=== PATIENT | male | born 1970 | race Caucasian/White ===

== ENCOUNTER 2018-03-27 16:55 | Emergency (ER) | payer MEDICAID ==
[2018-03-27 17:01] VITALS: BP 141/88
--- NOTE | 2018-03-27 17:04 | EDPHY ---
H & P Stated Complaint: cough, hoarse voice, sob, L gum swelling --x 2 weeks Time Seen by Provider: 03/27/18 17:03 - Medical/Surgical History Hx Asthma: Yes Hx Chronic Respiratory Disease: No Hx Diabetes: No Hx Cardiac Disease: No Hx Renal Disease: No Hx Cirrhosis: No Hx Alcoholism: No Hx HIV/AIDS: No Hx Splenectomy or Spleen Trauma: No Other PMH: childhood asthma - Social History Smoking Status: Current every day smoker Constitutional: Initial Vital Signs Temperature (C) 36.7 C 03/27/18 16:58 Heart Rate 88 03/27/18 16:58 Respiratory Rate 18 03/27/18 16:58 Blood Pressure 141/88 H 03/27/18 16:58 O2 Sat (%) 98 03/27/18 16:58 O2 Delivery Mode Room Air Allergies/Adverse Reactions: No Known Allergies Allergy (Unverified 03/27/18 16:57) Home Medications: Medication Instructions Recorded Albuterol [Proventil Inhaler] 1 - 2 puffs IH Q4 #1 mdi 03/27/18 Azithromycin [Zithromax] 250 mg PO DAILY #6 tab 03/27/18 HYDROcodone/HOMATROPINE HYCODA 1 tsp PO Q4-6PRN PRN #120 ml 03/27/18 [Hycodan Syrup (RX)] predniSONE 40 mg PO DAILY #10 tab 03/27/18 Medical Decision Making - Diagnostics Imaging Results: Imaging Impressions Chest X-Ray 03/27/18 17:09 Impression: No evidence of acute cardiopulmonary abnormality. ED Course/Re-evaluation: CHIEF COMPLAINT: Shortness of breath, cough, gum swelling HISTORY OF PRESENT ILLNESS: The patient is a 47 y/o male complaining of shortness of breath, cough, and gum swelling for the past month. He used his inhaler without relief of his symptoms. Denies taking pain medication for his symptoms. Denies chest pain, abdominal pain, urinary or bowel complaints, paresthesias or numbness. REVIEW OF SYSTEMS: A 10 point review of systems was performed and is negative with the exception of the elements mentioned in the history of present illness. PHYSICAL EXAM: HR, BP, O2 Sat, RR. Temp noted General Appearance: Alert, well hydrated, appropriate, and non-toxic appearing. Head: Atraumatic without scalp tenderness or obvious injury Eyes: Pupils equal, round, reactive to light and accommodation, EOMI, no trauma , no injection. Ears: Clear bilaterally, no perforation, normal landmarks Nose: Atraumatic, no rhinorrhea, clear. Throat: Left lower gum erythema and swelling. No lesions, normal tonsils, mucus membranes moist. Neck: Supple, nontender, no lymphadenopathy. Respiratory: Coarse rhonchi throughout all lung gastelum, decreased breath sounds throughout, increased expiratory wheezing. No retractions, no distress, and no accessory muscle use. Cardiovascular: Regular rate and rhythm, no murmurs, rubs, or gallops. Bilateral carotid, radial, dorsalis pedis, and posterior tibial pulses intact. Good capillary refill all extremities. Gastrointestinal: Abdomen is soft, nontender, non-distended, no masses, no rebound, no guarding, no peritoneal signs. Musculoskeletal: Normal active ROM of all extremities, atraumatic. Neurological: Alert, appropriate, and interactive. The patient has normal DTRs and non-focal cranial nerves, motor, sensory, and cerebellar exam. Skin: No rashes, good turgor, no nodules on palpation. Past medical history: Childhood asthma Past surgical history: Denies Family history: Denies Social history: Friend at bedside, lives in [place], employed DIAGNOSTICS/PROCEDURES/CRITICAL CARE TIME: Chest x-ray: Bronchitis DIFFERENTIAL DIAGNOSIS: The differential diagnosis for the patient's shortness of breath and hypoxemia included but was not limited to pneumonia, myocardial infarction, acute mountain sickness, high altitude pulmonary edema, congestive heart failure, and pulmonary embolus. MEDICAL DECISION MAKING: The patient is a 47 y/o male presenting with shortness of breath, cough, and gum swelling for the past month. On exam he has coarse rhonchi throughout all lung gastelum, decreased breath sounds throughout, and increased expiratory wheezing. He also has left lower gum erythema and swelling. Chest x-ray ordered ; laboratory studies are not indicated at this time. 60 mg PO Prednisone, 500mg PO Zithromax, DuoNeb, 800mg PO Ibuprofen, and 2 tabs PO Percocet administered. 1738: I reviewed patient's chest x-ray which reveals bronchitis. 174: Reassessed patient and discussed imaging findings. I have prescribed him Prednisone, a Proventil inhaler, Vicodin, Zithromax. I have also advised him to buy Mucinex over the counter. Return precautions provided; patient is comfortable with this plan. - Data Points Medications Given: Discontinued Medications Albuterol/Ipratropium (Duoneb) 3 ml IH EDNOW ONE Stop: 03/27/18 17:10 Last Admin: 03/27/18 17:16 Dose: 3 ml Azithromycin (Zithromax) 500 mg PO EDNOW ONE PRN Reason: Protocol Stop: 03/27/18 17:10 Last Admin: 03/27/18 17:18 Dose: 500 mg Ibuprofen (Motrin) 800 mg PO EDNOW ONE Stop: 03/27/18 17:15 Last Admin: 03/27/18 17:18 Dose: 800 mg Oxycodone/Acetaminophen (Percocet 5/325) 2 tab PO EDNOW ONE Stop: 03/27/18 17:14 Last Admin: 03/27/18 17:18 Dose: 2 tab Prednisone (Prednisone) 60 mg PO EDNOW ONE Stop: 03/27/18 17:10 Last Admin: 03/27/18 17:17 Dose: 60 mg Departure - Departure Disposition: Home, Routine, Self-Care Clinical Impression: Acute bronchitis Qualifiers: Bronchitis organism: other organism Qualified Code(s): J20.8 - Acute bronchitis due to other specified organisms Condition: Good Instructions: Acute Bronchitis (ED) Additional Instructions: 1. Take Prednisone as prescribed. 2. Use the Proventil inhaler as prescribed. 3. Take Vicodin as prescribed. 4. Take Zithromax as prescribed. 5. Buy Mucinex of the counter. 6. Follow-up with your primary doctor within 72 hours. 7. Return to the Emergency Department for fever, chest pain, shortness of breath , increasing pain or other worsening of condition. Referrals: [facility],. [Clinic] - As per Instructions Prescriptions: Albuterol [Proventil Inhaler] 1 - 2 puffs IH Q4 #1 mdi Azithromycin [Zithromax] 250 mg PO DAILY #6 tab HYDROcodone/HOMATROPINE HYCODA [Hycodan Syrup (RX)] 1 tsp PO Q4-6PRN PRN #120 ml PRN Reason: Cough, Moderate predniSONE 40 mg PO DAILY #10 tab Report Scribed for: Braeden Rivera Report Scribed by: Rabia Martinez Date of Report: 03/27/18 Time of Report: 17:06
[2018-03-27] MEDS ORDERED: predniSONE 20 MG TAB PO ONE (17:09)
[2018-03-27] MEDS ORDERED: AZITHROMYCIN 250 MG TAB PO ONE (17:09)
[2018-03-27] MEDS ORDERED: IPRATROPIUM/ALBUTEROL 3 ML DEYVIAL IH ONE (17:09)
[2018-03-27] MEDS ORDERED: OXYCODONE/APAP 5/325 TAB PO ONE (17:13)
[2018-03-27] MEDS ORDERED: IBUPROFEN 800 MG TAB PO ONE ×2 (17:14→17:15)
[2018-03-27] MEDS ORDERED: HYDROCOD/APAP 5/325 PREPACK#6 BTL TAKEHOME ONE ×2 (20:33→20:34)
== END 2018-03-27 17:52 | disposition home or self-care (01) ==
DX: J20.9 Acute bronchitis, unspecified (principal); J45.909 Unspecified asthma, uncomplicated; F17.200 Nicotine dependence, unspecified, uncomplicated
CPT/HCPCS: J7512

== ENCOUNTER 2018-11-11 16:42 | Emergency (ER) | payer MEDICAID ==
[2018-11-11 16:56] VITALS: BP 121/85
[2018-11-11] MEDS ORDERED: methylPREDNISolone SOD SUCC 125 MG/2 ML VIAL IM ONE (17:00)
[2018-11-11] MEDS ORDERED: IPRATROPIUM/ALBUTEROL 3 ML DEYVIAL IH ONE (17:00)
--- NOTE | 2018-11-11 17:00 | EDPHY ---
H & P Stated Complaint: General malaise Time Seen by Provider: 11/11/18 16:56 HPI/ROS: HPI: This is a 48-year-old male who presents with Chief Complaint: Cough, fatigue Location: Chest Quality: Cough and wheezing Duration: Several weeks Signs and Symptoms: no shortness of breath at rest, + shortness of breath on exertion, + cough, no chest pain, no palpitations, no lower extremity edema, + wheezing, no orthopnea, no paroxysmal nocturnal dyspnea, no fever, no injury/ trauma, no hemoptysis, no carpal pedal spasms Timing: Acute, worsening Severity: Moderate Context: Patient has a history of childhood asthma, almost out of his ProAir rescue inhaler, presents with several week history cough that is worse at night that is nonproductive in nature, fatigue, low-grade fevers, shortness of breath on exertion and wheezing. Patient reports over the last 2 nights his symptoms have been worse. Patient does smoke cigarettes daily. Patient does not have a primary care provider in the area. He denies any chest pain, lower extremity edema, calf pain. Patient received influenza vaccine this year. Modifying Factors: Albuterol inhaler Comment: ROS: A comprehensive 10 system review of systems is otherwise negative aside from elements mentioned in the history of present illness. MEDICAL/SURGICAL/SOCIAL HISTORY: Medical history: Asthma, obstructive sleep apnea. Surgical history: Tonsillectomy and adenoidectomy Social history: Smoker. Employed. Moved to the area from [place] approximately 2 months ago. CONSTITUTIONAL: Nontoxic-appearing middle-aged white male, awake and alert, no obvious distress HEENT: Atraumatic and normocephalic, PERRL, EOMI. Nares patent; no rhinorrhea; no nasal mucosal edema. Tympanic membranes clear. Oropharynx clear, no tonsils , no exudate and moist pink mucosa. Airway patent. No lymphadenopathy. No meningismus. Cardiovascular: Normal S1/S2, regular rate, regular rhythm, without murmur rub or gallop. PULMONARY/CHEST: Symmetrical and nontender. Expiratory wheezing bilaterally. Average air movement. No accessory muscle usage. ABDOMEN: Soft, nondistended, nontender, no rebound, no guarding, no peritoneal signs, no masses or organomegaly. No CVAT. EXTREMITIES: 2/2 pulses, strength 5/5, no deformities, no clubbing, no cyanosis or edema. NEUROLOGICAL: no focal neuro deficits. GCS 15. SKIN: Warm and dry, no erythema. no rash. Good capillary refill. Source: Patient Exam Limitations: No limitations - Personal History Current Tetanus/Diphtheria Vaccine: Yes - Medical/Surgical History Hx Asthma: Yes Hx Chronic Respiratory Disease: No Hx Diabetes: No Hx Cardiac Disease: No Hx Renal Disease: No Hx Cirrhosis: No Hx Alcoholism: No Hx HIV/AIDS: No Hx Splenectomy or Spleen Trauma: No Other PMH: childhood asthma - Social History Smoking Status: Current every day smoker Constitutional: Initial Vital Signs Temperature (C) 36.9 C 11/11/18 16:54 Heart Rate 93 11/11/18 16:54 Respiratory Rate 18 11/11/18 16:54 Blood Pressure 121/85 H 11/11/18 16:54 O2 Sat (%) 96 11/11/18 16:54 O2 Delivery Mode Room Air Allergies/Adverse Reactions: No Known Allergies Allergy (Unverified 11/11/18 16:55) Home Medications: Medication Instructions Recorded Albuterol [Proventil Inhaler] 1 - 2 puffs IH Q4 #1 mdi 03/27/18 Azithromycin [Zithromax] 250 mg PO DAILY #6 tab 03/27/18 HYDROcodone/APAP 10/325 [[place] 1 - 2 each PO Q4-6PRN PRN #20 tab 03/27/18 10/325] HYDROcodone/HOMATROPINE HYCODA 1 tsp PO Q4-6PRN PRN #120 ml 03/27/18 [Hycodan Syrup (RX)] predniSONE 40 mg PO DAILY #10 tab 03/27/18 Albuterol Sulfate [Proair Hfa] 1 - 2 puffs IH Q4-6PRN PRN #1 11/11/18 hfa.aer.ad Benzonatate [Tessalon Pearles (RX)] 200 mg PO Q6 PRN #12 cap 11/11/18 HYDROcodone/HOMATROPINE HYCODA 1 tsp PO HS PRN #120 ml 11/11/18 [Hycodan Syrup (*)] predniSONE 50 mg PO DAILY 5 Days tablet 11/11/18 Medical Decision Making - Diagnostics Imaging Results: Imaging Impressions Chest X-Ray 11/11/18 17:00 Impression: Mild perihilar bronchitis, without a focal infiltrate. ED Course/Re-evaluation: Vital signs reviewed and stable upon arrival. O2 sats 96% on room air. No hypoxia or respiratory distress. Differential includes upper respiratory infection versus asthma exacerbation Chest x-ray, medications ordered Patient given IM Solu-Medrol 125 mg, DuoNeb, p.o. Zofran, p.o. Percocet 1735: Chest x-ray my read shows no opacity, no effusion, no pneumothorax. + bronchitic changes noted Reassessed patient who has improved aeration and improvement in wheezing. Patient is appropriate to treat outpatient. Patient given refill for ProAir inhaler, prednisone burst, Tessalon Perles This patient was seen under the supervision of my secondary supervising physician. I evaluated care for this patient independently. Discussed this patient with Dr. Dai who did not see the patient. Differential Diagnosis: Shortness of breath including but not limited to pulmonary infectious process, COPD, asthma, pulmonary embolus and congestive heart failure. - Data Points Medications Given: Discontinued Medications Albuterol/Ipratropium (Duoneb) 3 ml IH EDNOW ONE Stop: 11/11/18 17:01 Last Admin: 11/11/18 17:05 Dose: 3 ml Methylprednisolone Sodium Succinate (Solu-Medrol) 125 mg IM EDNOW ONE Stop: 11/11/18 17:01 Last Admin: 11/11/18 17:05 Dose: 125 mg Ondansetron HCl (Zofran Odt) 4 mg PO EDNOW ONE Stop: 11/11/18 17:02 Last Admin: 11/11/18 17:05 Dose: 4 mg Oxycodone/Acetaminophen (Percocet 5/325) 1 tab PO EDNOW ONE Stop: 11/11/18 17:02 Last Admin: 11/11/18 17:05 Dose: 1 tab Departure - Departure Disposition: Home, Routine, Self-Care Clinical Impression: Upper respiratory infection, viral Asthma with acute exacerbation in adult Qualifiers: Asthma severity: moderate Asthma persistence: persistent Qualified Code(s): J45.41 - Moderate persistent asthma with (acute) exacerbation Condition: Good Instructions: COPD (Chronic Obstructive Pulmonary Disease) (ED), Bronchospasm ( ED) Additional Instructions: Please refrain from using tobacco products as this can make your asthma worse. Take steroid burst as directed. Use ProAir inhaler every 4-6 hours as needed for shortness of breath, wheezing. Use Tessalon Perles every 6 hr as needed for cough. Use cough syrup at night as needed for severe cough. Consume a minimum of 8-10 glasses of water or electrolyte fluid replacement drinks that include Gatorade, Powerade, Pedialyte. Please establish care at the [facility] in the next 3-4 days. Call tomorrow for an appointment. Referrals: [facility],. [Clinic] - As per Instructions Stand Alone Forms: Work Excuse Prescriptions: Albuterol Sulfate [Proair Hfa] 1 - 2 puffs IH Q4-6PRN PRN #1 hfa.aer.ad PRN Reason: Short Of Breath/Dyspnea Benzonatate [Tessalon Pearles (RX)] 200 mg PO Q6 PRN #12 cap PRN Reason: Cough, Moderate HYDROcodone/HOMATROPINE HYCODA [Hycodan Syrup (*)] 1 tsp PO HS PRN #120 ml PRN Reason: Cough, Severe predniSONE 50 mg PO DAILY 5 Days tablet
[2018-11-11] MEDS ORDERED: OXYCODONE/APAP 5/325 TAB PO ONE (17:01)
[2018-11-11] MEDS ORDERED: ONDANSETRON DISINTEGRATING 4 MG TAB PO ONE (17:01)
== END 2018-11-11 17:48 | disposition home or self-care (01) ==
DX: J06.9 Acute upper respiratory infection, unspecified (principal); J45.41 Moderate persistent asthma with (acute) exacerbation
CPT/HCPCS: J2930

== ENCOUNTER 2019-02-20 11:21 | Emergency (ER) | payer MEDICAID ==
--- NOTE | 2019-02-20 11:31 | EDPHY ---
H & P Stated Complaint: SOB/Hip pain Time Seen by Provider: 02/20/19 11:27 HPI/ROS: HPI: This is a 48-year-old male who presents with Chief Complaint: Right hip pain Location: Right hip Quality: Pain Duration: 3 months Signs and Symptoms: no fever, no nausea, no vomiting, no hematemesis, no blood in stool, no abdominal bloating, no diarrhea, no back pain, no urinary symptoms , no testicular/groin pain, no indigestion, no chest pain, no shortness of breath Timing: Worse this morning Severity: 06/18 Context: Patient reports that he has a history of lumbar degenerative disc disease, presents with worsening discomfort of his right hip with decreased range of motion primarily flexion and extension. Patient reports that since this morning he has had used his hand to help knot picker cloth his right leg. 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 Yesterday he was bending down quite a bit scanning people and believes that this may have worsened his symptoms. While he was having this severe pain this morning, he started to feel short of breath and nauseous. He has no fever, wheezing, chest pain, lower extremity edema. He denies any change in bowel or bladder habits, no hematuria, no vomiting. No history of kidney stones. Patient urinated prior to arrival to the emergency room without difficulty. Modifying Factors: None Comment: ROS: A comprehensive 10 system review of systems is otherwise negative aside from elements mentioned in the history of present illness. MEDICAL/SURGICAL/SOCIAL HISTORY: Medical history: Childhood asthma Surgical history: Denies Social history: . Employed as a security systems engineer. Retired police lieutenant. Former smoker. Family history noncontributory. CONSTITUTIONAL: Moderate distress, overweight, middle-aged male, at bedside, awake and alert HEENT: Atraumatic and normocephalic, PERRL, EOMI. Nares patent; no rhinorrhea; no nasal mucosal edema. Tympanic membranes clear. Oropharynx clear, no exudate and moist pink mucosa. Airway patent. No lymphadenopathy. No meningismus. Cardiovascular: Normal S1/S2, tachycardia, regular rhythm, without murmur rub or gallop. PULMONARY/CHEST: Symmetrical and nontender. Clear to auscultation bilaterally. Good air movement. No accessory muscle usage. ABDOMEN: Soft, protuberant, nontender, no rebound, no guarding, no peritoneal signs, no masses or organomegaly. No CVAT. PELVIC: no pain with rocking; bilateral hips flexion 125 degrees, extension 30 degrees, with no pain internal rotation and no pain external rotation. BACK: No midline tenderness, no paraspinous spasm, deep tendon reflexes 2/2, no pain with straight leg raise, No foot drop. Achilles reflexes are equal bilaterally. Able to walk on heels and toes without difficulty. EXTREMITIES: 2/2 pulses, strength 5/5, right HIP: Flexion decreased to 60 degree, extension decreased to 60 degree, hyper extension to 15, abduction to 45. Moderate Pain with internal rotation and external rotation. Mild tenderness over greater trochanter. no deformities, no clubbing, no cyanosis or edema. NEUROLOGICAL: no focal neuro deficits. GCS 15. SKIN: Warm and dry, no erythema. no rash. Good capillary refill. Source: Patient, Family () Exam Limitations: No limitations - Personal History Current Tetanus/Diphtheria Vaccine: Yes - Medical/Surgical History Hx Asthma: Yes Hx Chronic Respiratory Disease: No Hx Diabetes: No Hx Cardiac Disease: No Hx Renal Disease: No Hx Cirrhosis: No Hx Alcoholism: No Hx HIV/AIDS: No Hx Splenectomy or Spleen Trauma: No Other PMH: childhood asthma - Social History Smoking Status: Former smoker Constitutional: Initial Vital Signs Temperature (C) 37.0 C 02/20/19 11:23 Heart Rate 120 H 02/20/19 11:23 Respiratory Rate 18 02/20/19 11:23 Blood Pressure 142/104 H 02/20/19 11:23 O2 Sat (%) 96 02/20/19 11:23 O2 Delivery Mode Room Air Allergies/Adverse Reactions: No Known Allergies Allergy (Unverified 11/11/18 16:55) Home Medications: Medication Instructions Recorded Albuterol [Proventil Inhaler] 1 - 2 puffs IH Q4 #1 mdi 03/27/18 Azithromycin [Zithromax] 250 mg PO DAILY #6 tab 03/27/18 HYDROcodone/APAP 10/325 [[place] 1 - 2 each PO Q4-6PRN PRN #20 tab 03/27/18 10/325] HYDROcodone/HOMATROPINE HYCODA 1 tsp PO Q4-6PRN PRN #120 ml 03/27/18 [Hycodan Syrup (RX)] predniSONE 40 mg PO DAILY #10 tab 03/27/18 Albuterol Sulfate [Proair Hfa] 1 - 2 puffs IH Q4-6PRN PRN #1 11/11/18 hfa.[email or web address].[email or web address] Benzonatate [Tessalon Pearles (RX)] 200 mg PO Q6 PRN #12 cap 11/11/18 HYDROcodone/HOMATROPINE HYCODA 1 tsp PO HS PRN #120 ml 11/11/18 [Hycodan Syrup (*)] predniSONE 50 mg PO DAILY 5 Days tablet 11/11/18 Diazepam [Valium 5 MG (*)] 5 mg PO Q8 PRN #10 tab 02/20/19 methylPREDNISolone [Medrol Dose 1 each PO AD #1 ea 02/20/19 Federico] oxyCODONE/APAP 5/325 [Percocet 1 - 2 tab PO Q4H PRN #10 tab 02/20/19 5/325 (*)] Medical Decision Making - Diagnostics Imaging Results: Imaging Impressions Hip X-Ray 02/20/19 11:32 Impression: Negative. No explanation for right hip pain. Lumbar Spine MRI 02/20/19 11:32 Impression: 1. L4-L5: Diffuse broad-based disk bulge results in moderate narrowing of the central canal and neural foramina appear to affect the exiting L4 nerve roots, more so right than left. 2. L5-S1: Mild degenerative disk disease. 3. Normal disks extending from T12-L1 to L3-L4. Findings discussed with emergency department physician certified dental assistant, RICARDO Fonseca on February 20, 2019 at 1:12 p.m. ED Course/Re-evaluation: Vital signs reviewed and show elevated blood pressure and tachycardia. IV access, laboratory studies, urinalysis, right hip x-ray, MRI lumbar spine ordered Patient given 1 L normal saline, IV promethazine 12.5 mg, IV Toradol 30 mg, IV Dilaudid 0.5 mg MRI of the lumbar spine was ordered due to new symptom of inability to raise right leg 1213: Right hip x-ray my read shows mild degenerative changes but no fracture, dislocation. 1220: Labs reviewed. No signs of leukocytosis/anemia/platelet dysfunction/KE/ elevated LFTs/electrolyte imbalance/pancreatitis. Urinalysis is unremarkable. 1310: Called by Radiology, Dr. Dong, who reports that MRI shows L4-L5 moderate disc bulge with moderate central canal stenosis and moderate neural foraminal stenosis with right-sided cord impingement and L5-S1 mild disc bulge with no cord impingement. 1330: Patient able to get in out of bed on his own and walk to the bathroom with no assistance and no ataxia. Patient feels comfortable for discharge home with Medrol Dosepak, pain control, muscle relaxers and Neurosurgery follow-up No signs of neurovascular compromise/tenting of skin/compartment syndrome/ extremities and joints examined above and below area of concern and are neurovascularly intact/cauda equina syndrome/saddle anesthesia. This patient was seen under the supervision of my secondary supervising physician. I evaluated care for this patient with attending. Differential Diagnosis: Back pain including but not limited to muscular pain, herniated disc, spine fracture, intra-abdominal causes and urinary tract infection. - Data Points Laboratory Results: Laboratory Results 02/20/19 11:43 02/20/19 11:43 02/20/19 02/20/19 02/20/19 13:19 11:43 11:43 WBC 7.94 10^3/uL 10^3/uL (3.80-9.50) RBC 5.69 10^6/uL 10^6/uL (4.40-6.38) Hgb 15.0 g/dL g/dL (13.7-17.5) Hct 46.3 % % (40.0-51.0) MCV 81.4 fL L fL (81.5-99.8) MCH 26.4 pg L pg (27.9-34.1) MCHC 32.4 g/dL g/dL (32.4-36.7) RDW 15.2 % % (11.5-15.2) Plt Count 239 10^3/uL 10^3/uL (150-400) MPV 10.4 fL fL (8.7-11.7) Neut % (Auto) 55.3 % % (39.3-74.2) Lymph % (Auto) 29.8 % % (15.0-45.0) [place] % (Auto) 9.4 % % (4.5-13.0) Eos % (Auto) 4.8 % % (0.6-7.6) Baso % (Auto) 0.4 % % (0.3-1.7) Nucleat RBC Rel Count 0.0 % % (0.0-0.2) Absolute Neuts (auto) 4.39 10^3/uL 10^3/uL (1.70-6.50) Absolute Lymphs (auto) 2.37 10^3/uL 10^3/uL (1.00-3.00) Absolute Monos (auto) 0.75 10^3/uL 10^3/uL (0.30-0.80) Absolute Eos (auto) 0.38 10^3/uL 10^3/uL (0.03-0.40) Absolute Basos (auto) 0.03 10^3/uL 10^3/uL (0.02-0.10) Absolute Nucleated RBC 0.00 10^3/uL 10^3/uL (0-0.01) Immature Gran % 0.3 % % (0.0-1.1) Immature Gran # 0.02 10^3/uL 10^3/uL (0.00-0.10) Platelet Estimate Not Reported Sodium 138 mEq/L mEq/L (135-145) Potassium 4.7 mEq/L mEq/L (3.5-5.2) Chloride 107 mEq/L mEq/L (97-110) Carbon Dioxide 22 mEq/l mEq/l (22-31) Anion Gap 9 mEq/L mEq/L (6-14) BUN 14 mg/dL mg/dL (7-23) Creatinine 0.7 mg/dL mg/dL (0.7-1.3) Estimated GFR > 60 Glucose 100 mg/dL mg/dL (70-100) Calcium 9.2 mg/dL mg/dL (8.5-10.4) Total Bilirubin 0.6 mg/dL mg/dL (0.1-1.4) Conjugated Bilirubin 0.4 mg/dL mg/dL (0.0-0.5) Unconjugated Bilirubin 0.2 mg/dL mg/dL (0.0-1.1) AST 29 IU/L IU/L (17-59) ALT 38 IU/L IU/L (21-72) Alkaline Phosphatase 63 IU/L IU/L (38-126) Total Protein 6.7 g/dL g/dL (6.3-8.2) Albumin 4.0 g/dL g/dL (3.5-5.0) Lipase 147 IU/L IU/L (23-300) Urine Color YELLOW Urine Appearance CLEAR Urine pH 5.0 (5.0-7.5) Ur Specific [place] 1.023 (1.002-1.030) Urine Protein NEGATIVE (NEGATIVE) Urine Ketones NEGATIVE (NEGATIVE) Urine Blood NEGATIVE (NEGATIVE) Urine Nitrate NEGATIVE (NEGATIVE) Urine Bilirubin NEGATIVE (NEGATIVE) Urine Urobilinogen NEGATIVE EU EU (0.2-1.0) Ur Leukocyte Esterase NEGATIVE (NEGATIVE) Urine Glucose NEGATIVE (NEGATIVE) Medications Given: Discontinued Medications Hydromorphone HCl (Dilaudid) 0.5 mg IVP EDNOW ONE Stop: 02/20/19 11:33 Last Admin: 02/20/19 12:09 Dose: 0.5 mg Sodium Chloride (Ns) 1,000 mls @ 0 mls/hr IV EDNOW ONE; Wide Open PRN Reason: Protocol Stop: 02/20/19 11:33 Last Admin: 02/20/19 12:10 Dose: 1,000 mls Ketorolac Tromethamine (Toradol) 30 mg IVP EDNOW ONE Stop: 02/20/19 11:33 Last Admin: 02/20/19 12:10 Dose: 30 mg Promethazine HCl (Phenergan) 12.5 mg IVP EDNOW ONE Stop: 02/20/19 11:33 Last Admin: 02/20/19 12:10 Dose: 12.5 mg Departure - Departure Disposition: Home, Routine, Self-Care Clinical Impression: Lumbosacral radiculopathy due to degenerative joint disease of spine, Central stenosis of spinal canal, Neural foraminal stenosis of lumbosacral spine Condition: Good Instructions: Lumbar Disc Herniation (ED), Degenerative Disc Disease (ED) Additional Instructions: Activity: Limit activity to pain tolerance. Try to get in and out of bed and walk around the house several times per day. Do not perform any heavy lifting greater than 10 lb until pain free. Take Tylenol 650 mg every 4 hours and/or Ibuprofen 600 mg every 8 hours with food as needed for pain. Use Percocet every 6 hours as needed for severe/break through pain. Do not use Tylenol and Percocet concomitantly. Take Medrol Dosepak as directed. Do not skip a dose. Take Valium every 8 hr as needed for muscle spasms. Follow-up with Neurosurgery for evaluation and to discuss conservative management versus more aggressive interventions. Follow-Up: Please follow-up as noted above. Follow-up sooner if your condition worsens or if you develop any new problems. Call as soon as possible for an appointment. Be clear when you call for an appointment that this is an Emergency Department follow-up. Contact the Emergency Department if you have trouble arranging follow-up care. Our referrals are not based on your insurance network. When time allows, contact your insurance carrier to verify the referral physician is in your plan. If not, get a referral for an in-network security administrator. Referrals: Woody Ochoa MD [Medical Doctor] - As per Instructions Stand Alone Forms: Work Excuse Prescriptions: Diazepam [Valium 5 MG (*)] 5 mg PO Q8 PRN #10 tab PRN Reason: Spasms methylPREDNISolone [Medrol Dose Federico] 1 each PO AD #1 ea oxyCODONE/APAP 5/325 [Percocet 5/325 (*)] 1 - 2 tab PO Q4H PRN #10 tab PRN Reason: Pain, Severe
[2019-02-20] MEDS ORDERED: HYDROmorphONE/DILAUDID 2 MG/ML INJ IVP ONE (11:32)
[2019-02-20] MEDS ORDERED: PROMETHAZINE HCL 25 MG/ML INJ IVP ONE (11:32)
[2019-02-20] MEDS ORDERED: KETOROLAC 30 MG/1 ML SDV IVP ONE (11:32)
[2019-02-20] MEDS ORDERED: NS 1,000 ML IV ONE (11:32)
[2019-02-20 12:45] LABS: PLATELET COUNT 239 10^3/uL (150-400)
[2019-02-20 14:04] VITALS: BP 122/65
== END 2019-02-20 14:04 | disposition home or self-care (01) ==
DX: M47.896 Other spondylosis, lumbar region (principal); M48.061 Spinal stenosis, lumbar region without neurogenic claudication; M99.73 Connective tissue and disc stenosis of intervertebral foramina of lumbar region; E86.9 Volume depletion, unspecified
CPT/HCPCS: 96374; J1170; J1885; J2550

== ENCOUNTER 2019-04-13 18:27 | Emergency (ER) | payer MEDICAID | END 2019-04-13 19:55 | disposition home or self-care (01) ==